=== PATIENT | male | born 1960 | race Hispanic/Latino ===

== ENCOUNTER 2021-09-13 11:38 | Emergency (ER) | payer BC, OTHER ==
[2021-09-13 11:58] LABS: #Basophils 0.1 10x3/uL (0.0-0.2); #Eosinphils 0.1 10x3/uL (0.0-0.5); #Monocytes 0.8 10x3/uL (0.0-1.1); #Neutrophils 5.9 10x3/uL (1.5-8.4); %Basophils 0.5 % (0.0-2.0); %Eosinophils 0.6 % (0.0-6.0); %Monocytes 6.9 % (0.0-10.0); Hemoglobin 16.3 g/dL (13.5-17.5); Mean Corpuscular HGB CONC 34.2 g/dL (32.0-36.0); Mean Corpuscular Hemoglobin 30.4 pg (27.0-33.0); Mean Corpuscular Volume 88.6 fl (81.2-95.1); Mean Platelet Volume 9.9 fl (7.4-10.4); Platelet Count 282 10x3/uL (150-450); RBC Distribution Width 12.5 % (11.5-14.5); Red Blood Cell (RBC) Count 5.37 10x6/uL (4.32-5.72); White Blood Cell (WBC) Count 11.9 10x3/uL (3.5-10.5)
[2021-09-13] MEDS ORDERED: ceFAZolin 2 GM/Dextrose 50 ML IVPB ONE (12:00)
[2021-09-13] MEDS ORDERED: Boostrix 0.5 ML (Tdap) VIAL ONE (12:01)
[2021-09-13 12:12] LABS: ALT (SGPT) 25 U/L (8-55); AST (SGOT) 25 U/L (5-34); Albumin 4.2 g/dL (3.5-5.0); Alkaline Phosphatase 87 U/L (40-110); Anion Gap 13 mmol/L (10-20); BUN (Urea Nitrogen) 12 mg/dL (8.4-25.7); Bilirubin, Total 0.8 mg/dL (0.2-1.2); CK (CPK) 179 U/L (30-200); Calc. Creatinine Clearance 0 mL/min (70-130); Calcium 8.9 mg/dL (7.8-10.44); Carbon Dioxide 27 mmol/L (22-29); Chloride 103 mmol/L (98-107); Globulin 3.2 g/dL (2.4-3.5); Glucose 126 mg/dL (70-105); Potassium 3.8 mmol/L (3.5-5.1); Protein, Total 7.4 g/dL (6.0-8.3); Sodium 139 mmol/L (136-145)
[2021-09-13] MEDS ORDERED: Lidocaine 1% (PF) 30 ML VIAL ONE (13:45)
[2021-09-13] MEDS ORDERED: Bacitracin 1 PK ONE (14:22)
[2021-09-13 15:16] LABS: SARS-CoV-2 NAA Rapid Test DETECTED (NotDetected)
[2021-09-13] MEDS ORDERED: PROPOFOL 20 ML ONE (15:28)
[2021-09-13] MEDS ORDERED: Fentanyl 100 MCG/2 ML VIAL ONE (15:28)
[2021-09-13] MEDS ORDERED: CEFAZOLIN 1 GM VIAL ONE (15:55)
[2021-09-13] MEDS ORDERED: ePHEDrine Sulfate 50 MG/10 ML VIAL ONE (15:59)
[2021-09-13] MEDS ORDERED: PHENYLEPHRINE-NS 100 MCG/ML 10 ML SYRINGE ONE (16:29)
== END 2021-09-13 15:34 | disposition admitted as inpatient to this hospital (09) ==
LOC: CSHERS 11:38
PROC: 0LQL0ZZ Repair Right Upper Leg Tendon, Open Approach (ICD-10-PCS; principal; 2021-09-13)
DX: S71.111A Laceration without foreign body, right thigh, initial encounter (principal); U07.1 COVID-19; W26.8XXA Contact with other sharp object(s), not elsewhere classified, initial encounter
CPT/HCPCS: 20610; 80053; 82550; 85025; 90471; 90715; 96374; C1713; J0690; J2001; J2704; J3010; U0002